=== PATIENT | male | born 1965 | race African-American/Black ===

== ENCOUNTER 2020-10-21 15:39 | Emergency (ER) | payer MEDICAID ==
[~2020-10-21] VITALS: Ht 180.3 cm; Wt 76.0 kg
[2020-10-21] MEDS ORDERED: TETANUS, DIPHTHERIA, PERTUSSIS VAC/PF 0.5ML (>7YR OLD) IM ONE (21:00)
[2020-10-21] MEDS ORDERED: LIDOCAINE 1%/EPI 1:100,000 10 ML VIAL IJ ONE (21:00)
[2020-10-21] MEDS ORDERED: SULFAMETHOXAZOLE/TRIMETHOPRIM 800/160MG TABLET PO ONE (21:00)
[2020-10-21] MEDS ORDERED: IBUPROFEN 600MG TABLET PO ONE (21:00)
[2020-10-21] MEDS ORDERED: CEPHALEXIN 250MG CAPSULE PO ONE (21:00)
[2020-10-21] MEDS ORDERED: LIDOCAINE HCL/EPINEPHRINE 1%-EPI 1:100,000 20 ML VIAL INFIL ONE (21:30)
[2020-10-21 22:00] VITALS: BP 138/86
== END 2020-10-21 22:01 | disposition home or self-care (01) ==
LOC: ER 15:39
DX: L02.413 Cutaneous abscess of right upper limb (principal); F17.200 Nicotine dependence, unspecified, uncomplicated; F12.10 Cannabis abuse, uncomplicated; F14.10 Cocaine abuse, uncomplicated; Z98.890 Other specified postprocedural states; Z96.649 Presence of unspecified artificial hip joint
CPT/HCPCS: 90471; 90715; 99284; J3490; Z7610

== ENCOUNTER 2022-05-20 12:33 | Emergency (ER) | payer MEDICAID ==
[~2022-05-20] VITALS: Ht 177.8 cm; Wt 75.0 kg
[2022-05-20] MEDS ORDERED: LIDOCAINE HCL/PF 1% 10 MG/ML 5ML VIAL INFIL ONE (14:45)
[2022-05-20] MEDS ORDERED: TETANUS, DIPHTHERIA, PERTUSSIS VAC/PF 0.5ML (>10YR OLD) IM ONE (14:45)
[2022-05-20] MEDS ORDERED: BACITRACIN ZINC OINT UDPKT TOP ONE (14:45)
[2022-05-20] MEDS ORDERED: ACETAMINOPHEN WITH CODEINE 300/30MG TABLET PO ONE (17:30)
[2022-05-20] MEDS ORDERED: CEPH500C2 MT (17:33)
[2022-05-20] MEDS ORDERED: SULF1TAB48 MT (17:33)
[2022-05-20 17:50] VITALS: BP 128/71
== END 2022-05-20 17:52 | disposition home or self-care (01) ==
LOC: ER 12:33
DX: S01.511A Laceration without foreign body of lip, initial encounter (principal); W01.0XXA Fall on same level from slipping, tripping and stumbling without subsequent striking against object, initial encounter; Y93.89 Activity, other specified; Y92.9 Unspecified place or not applicable; Z96.649 Presence of unspecified artificial hip joint
CPT/HCPCS: 12014; 90471; 90715; 99283; J3490